=== PATIENT | male | born 1930 | race Caucasian/White ===

== ENCOUNTER 2016-10-26 13:15 | Emergency (ER) | payer MEDICARE ==
[2016-10-26 13:15] VITALS: BMI 19.8
--- NOTE | 2016-10-26 13:21 | EDPRACDOC ---
- General Information Chief Complaint: Altered Mental Status Stated Complaint: ALTERED MENTAL STATUS Time Seen by Provider: 10/26/16 13:18 Home Medications: Home Medications Aspirin [Aspirin EC] 81 mg PO DAILY 03/29/16 Metoprolol Tartrate [Lopressor] 25 mg PO BID #60 tablet 03/30/16 Chlordiazepoxide [Librium] 50 mg PO DAILY #20 capsule 10/26/16 Allergies/Adverse Reactions: Allergies Allergy/AdvReac Type Severity Reaction Status Date / Time No Known Allergies Allergy Verified 03/29/16 13:17 - History of Present Illness Onset: UNKNOWN Exact Onset of Symptoms: Unknown HPI: PT STATES THAT HIS DAUGHTER CALLED THE AMBULANCE AND HE DOES NOT KNOW WHY. PT DENIES ANY COMPLAINTS. PER EMS DAUGHTER WAS CONCERNED ABOUT AMS, DTR LIVES IN [place] AND WAS NOT AT THE HOME. PT'S FAMILY MEMBER THAT IS WITH HIM STATES THAT HE IS ACTING NORMALLY FOR HIM. STATES HE DID DRINK SOME ALCOHOL YESTERDAY BUT NONE TODAY. PT DENIES COMPLAINTS BUT INTERMITTENTLY APPEARS TO CRY. Symptoms began: Suddenly Duration: Since Onset Symptoms Currently: Reports: Still Present Altered Quality: Reports: Change in Behavior, Confusion Altered Severity: Reports: Moderate Recent Symptoms of: Reports: None Relevant History: Reports: CVA Prehospital: Reports: [employer], IV Associated signs and symptoms: Denies: Chest pain, Headache, Seizure, Slurred speech, Weakness ED Past Medical History - History Reviewed Yes Nurses notes reviewed and agree except as marked - Patient Medical History Neurological History: Reports: Dementia (mild) Cardiac History: Reports: Hypertension. Denies: Coronary Artery Disease, Atrial Fibrillation (in past- none), Hypercholesterolemia GI/ History: Reports: Gastroesophageal Reflux, Ulcer Musculoskeletal History: Reports: Osteoarthritis Psychological History: Reports: Substance Use Disorder (Patient drinks beer daily) Systemic History: Reports: Hypothyroidism Additional Past Medical History: GI BLEED Surgical History: Reports: Tonsillectomy/Adnoidectomy, Other (L eye - shrapnel from [facility]) - Family Medical History Reports: Hypertension, Cancer (maternal grandfather - colon CA), Stroke, Cardiac Disorders (mother - angina). Denies: Diabetes - Social Medical History Smoking Status: Never smoker Social History: Reports: Substance Use Disorder (Patient drinks beer daily) ETOH: Abuse Substance Abuse: None Lives With: Significant Other Lives In: Home EDM Review of Systems - Review of Systems Constitutional: negative: Chills, Fever, Fatigue, Weakness Eyes: negative: Blurred Vision, Double Vision Ears: negative: Drainage Throat: negative: Pain Nose: negative: Congestion, Discharge Respiratory: negative: Cough, Shortness of Breath, Wheezing Cardiovascular: negative: Chest Pain, Palpitations Gastrointestinal: negative: Diarrhea, Nausea, Pain, Vomiting Genitourinary: negative: Dysuria, Frequency Neurological: negative: Dizziness, Headache, Numbness, Weakness Musculoskeletal: No Symptoms Reported Integumentary: No Symptoms Reported - Physical Exam Constitutional: Alert (Awake), No apparent distress Oriented to: Person, Place Last recorded Vital Signs: Oxygen Pulse Oxygen Saturation O2 Device Oxygen Flow Rate Fraction of Inspired Oxygen ( FIO2) - HEENT Head: Normal ( normocephalic) Eye Exam: Normal (PERRL, EOMI, Sclera white) Oropharynx: Normal (Pharynx:Moist without exudate,Gums-no swelling) Tympanic Membrane: Normal ENT EAC: Normal TMJ: Normal Nose: No Symptoms Reported (septum midline) Neck: Normal (FROM, trachea at midline) - Respiratory/Cardiovascular Respiratory: Normal - CTA (BBS clear to auscultation without adventitious sounds ) Cardiovascular: Normal (RRR without murmur, gallop or rub) - GI Auscultation: Normal (NABS) Palpation: Normal (Soft,No rebound or guarding, non distended) Tenderness: Non tender Lord's Sign: Negative - Musculoskeletal Back: Normal (Non-Tender) Extremities: Normal (Normal tone, Pulses 2+ No cyanosis or edema, FROM) - Integumentary Skin: Normal, Warm, Dry Lymphatics: Normal (no adenopathy) - Neurologic Memory Impaired: Normal Motor Function: Normal (Normal tone, Pulses 2+ No cyanosis or edema, FROM) Cranial Nerve: Normal (CN II-X11 intact sensation, strength 5/5) Cerebellar: Normal Mood Description: Normal Perception: Normal Initial Evaluation Apperance: Unshaven, Underweight, Stated Age Attitude: Cooperative Mood: Euthymic Affect: Congruent w/ mood Insight: Good Judgement: Good Memory Description: Recent Impaired Depressive Symptoms: Reports: Crying episodes Anxiety Symptoms: Denies: Excessive Worries Manic/Hypomanic Symptoms: Denies: Expansive/irritable mood, Decreased Coping Skills, Racing Thoughts, Incr.pleasurable activity, Mood Swings, Pressured Speech Delusion Description: Reports: Not Present Hallucination Type: Reports: None - Differential Diagnosis Dehydration, Hypoglycemia, Hyponatremia, CVA, Mass Lesion, UTI - Re-evaluation Re-evaluation 1 Re-evaluation Time: 15:12 (PT REMOVED OWN IV, STATES WANTS TO GO HOME. DTR AT BEDSIDE, STATES LONG HX OF ETOH ABUSE, MULTIPLE ATTEMPTS AT GETTING HELP HAVE BEEN UNSUCCESSFUL. DTR WOULD LIKE TO TAKE PT HOME WITH HER BUT HE HAS REFUSED.) - Results 10/26/16 13:38 10/26/16 13:38 10/26/16 15:14 Laboratory Results - last 24 hr 10/26/16 10/26/16 10/26/16 13:38 13:38 13:38 WBC 4.7 RBC 3.55 L Hgb 10.8 L Hct 33.3 L MCV 94 MCH 30.4 MCHC 32.4 L RDW 17.0 H Plt Count 142 MPV 7.7 Neut % (Auto) 54.3 Lymph % (Auto) 25.2 [place] % (Auto) 18.4 H Eos % (Auto) 1.2 Baso % (Auto) 0.9 Absolute Neuts (auto) 2.54 Absolute Lymphs (auto) 1.18 PT 9.9 INR 1.0 APTT 22.3 Sodium 138 Potassium 4.4 Chloride 102 Carbon Dioxide 23 Anion Gap 17 H BUN 14 Creatinine 0.90 Estimated GFR (MDRD) > 60 Glucose 89 Calculated Osmolality 266 L Calcium 7.9 L Corrected Calcium 8.6 Total Bilirubin 0.6 AST 250 H ALT 143 H Alkaline Phosphatase 78 Troponin I 0.03 Total Protein 6.8 Albumin 3.3 L Urine Color Urine Clarity Urine pH Ur Specific [place] Urine Protein Urine Glucose (UA) Urine Ketones Urine Occult Blood Urine Nitrite Urine Bilirubin Urine Urobilinogen Ur Leukocyte Esterase Urine RBC Urine WBC Urine Mucus Urine Opiates Screen Ur Oxycodone Screen Urine Methadone Screen Ur Barbiturates Screen Ur Tricyclics Screen Ur Phencyclidine Scrn Ur Amphetamines Screen U Methamphetamines Scrn Urine MDMA Screen U Benzodiazepines Scrn Urine Cocaine Screen Ur THC Screen Plasma/Serum Ethyl Alc 0.34 H 10/26/16 10/26/16 14:15 14:15 WBC RBC Hgb Hct MCV MCH MCHC RDW Plt Count MPV Neut % (Auto) Lymph % (Auto) [place] % (Auto) Eos % (Auto) Baso % (Auto) Absolute Neuts (auto) Absolute Lymphs (auto) PT INR APTT Sodium Potassium Chloride Carbon Dioxide Anion Gap BUN Creatinine Estimated GFR (MDRD) Glucose Calculated Osmolality Calcium Corrected Calcium Total Bilirubin AST ALT Alkaline Phosphatase Troponin I Total Protein Albumin Urine Color Yellow Urine Clarity Clear Urine pH 5.0 Ur Specific [place] 1.005 Urine Protein Neg Urine Glucose (UA) Neg Urine Ketones 1+ H Urine Occult Blood 1+ H Urine Nitrite Neg Urine Bilirubin Neg Urine Urobilinogen <2.0 Ur Leukocyte Esterase Neg Urine RBC 0-2 Urine WBC 0-2 Urine Mucus Occ Urine Opiates Screen Neg Ur Oxycodone Screen Neg Urine Methadone Screen Neg Ur Barbiturates Screen Neg Ur Tricyclics Screen Neg Ur Phencyclidine Scrn Neg Ur Amphetamines Screen Neg U Methamphetamines Scrn Neg Urine MDMA Screen Neg U Benzodiazepines Scrn Neg Urine Cocaine Screen Neg Ur THC Screen Neg Plasma/Serum Ethyl Alc - EKG EKG #1 EKG Time: 13:29 -: Yes EKG interpreted by me Rate: bpm: 62 [place]: Normal Rhythm: NSR Block: None Hypertrophy: None ST: Nonsp Comparison: 03/29/16 (AFIB RESOLVED TODAY) - Diagnostic Imaging CT HEAD Image interpreted by: Radiologist CT HEAD WITHOUT CONTRAST TECHNIQUE: Contiguous axial images were obtained from the base of the skull through the vertex without intravenous contrast. COMPARISON: None. FINDINGS: There is no evidence of mass effect, midline shift, or extra-axial fluid collections. There is no evidence of a space-occupying lesion or intracranial hemorrhage. There is no evidence of a cortical-based area of acute infarction. There is generalized cerebral atrophy. There is periventricular white matter low attenuation likely secondary to microangiopathy. The ventricles and sulci are appropriate for the patient's age. The basal cisterns are patent. Visualized portions of the orbits are unremarkable. The visualized portions of the paranasal sinuses and mastoid air cells are unremarkable. Cerebrovascular atherosclerotic calcifications are noted. The osseous structures are unremarkable. IMPRESSION: 1. No acute intracranial pathology. 2. Chronic microvascular disease and cerebral atrophy. Decision Time to Discharge: 15:14 - Departure Disposition: Home Condition: Stable Final Diagnosis: Acute alcohol intoxication Qualifiers: Complication of substance-induced condition: uncomplicated Qualified Code(s): F10.120 - Alcohol abuse with intoxication, uncomplicated Instructions: Abuse of Alcohol (ED) Education/Counseling Given To: Patient, Family Member Education/Counseling Given Regarding: Diagnosis, Treatment, Prognosis, Follow Up Referrals: Bryan Beltran MD [Primary Care Provider] - One Week Prescriptions: New Chlordiazepoxide [Librium] 50 mg PO DAILY #20 capsule Continue Aspirin [Aspirin EC] 81 mg PO DAILY Metoprolol Tartrate [Lopressor] 25 mg PO BID #60 tablet Additional Instructions: PLEASE DO NOT TAKE LIBRIUM IF YOU ARE GOING TO DRINK, PLEASE FOLLOW UP WITH [facility] FOR ASSISTANCE WITH YOUR ALCOHOL ABUSE.
[2016-10-26] MEDS ORDERED: NS 1,000 ML IV ONE (13:23)
[2016-10-26 13:26] VITALS: TEMP 97.8
[2016-10-26 13:47] LABS: AUTOMATED BASOPHIL 0.9 % (0-2); AUTOMATED EOSINOPHIL 1.2 % (0-5); AUTOMATED LYMPH 25.2 % (17-44); AUTOMATED MONOCYTE 18.4 % (3-10); AUTOMATED NEUTROPHIL 54.3 % (45-76); MPV 7.7 fL (7.4-10.4)
[2016-10-26 13:59] LABS: PARTIAL THROMB. TIME 22.3 SEC (22-35)
[2016-10-26 14:08] LABS: BLOOD UREA NITROGEN 14 MG/DL (9-20); CALC CORRECTED 8.6 MG/DL (8.4-10.2); CALCIUM 7.9 MG/DL (8.4-10.2); CALCULATED OSMOLALITY 266 MOs/Kg (270-290); CHLORIDE 102 mEq/L (98-107); GLUCOSE 89 mg/dL (70-99); SODIUM LEVEL 138 mEq/L (137-146); TOTAL PROTEIN 6.8 G/DL (6.3-8.2)
[2016-10-26 14:15] LABS: ETOH-MGDL 342 mg/dL
--- NOTE | 2016-10-26 14:28 | DIRPT ---
CLINICAL DATA: New onset altered mental status. EXAM: CT HEAD WITHOUT CONTRAST TECHNIQUE: Contiguous axial images were obtained from the base of the skull through the vertex without intravenous contrast. COMPARISON: None. FINDINGS: There is no evidence of mass effect, midline shift, or extra-axial fluid collections. There is no evidence of a space-occupying lesion or intracranial hemorrhage. There is no evidence of a cortical-based area of acute infarction. There is generalized cerebral atrophy. There is periventricular white matter low attenuation likely secondary to microangiopathy. The ventricles and sulci are appropriate for the patient's age. The basal cisterns are patent. Visualized portions of the orbits are unremarkable. The visualized portions of the paranasal sinuses and mastoid air cells are unremarkable. Cerebrovascular atherosclerotic calcifications are noted. The osseous structures are unremarkable. IMPRESSION: 1. No acute intracranial pathology. 2. Chronic microvascular disease and cerebral atrophy. Electronically Signed By: Fanta Galdamez On: 10/26/2016 14:25
--- NOTE | 2016-10-26 14:45 | DIRPT ---
CLINICAL DATA: Altered mental status of unknown duration. Initial encounter. EXAM: PORTABLE CHEST 1 VIEW COMPARISON: Single view of the chest 03/29/2016. PA and lateral chest 08/10/2010. FINDINGS: Calcified pleural plaques are again seen. The lungs are clear. Heart size is enlarged. No pneumothorax or pleural effusion. The patient appears to have a hiatal hernia. No focal bony abnormality. IMPRESSION: Cardiomegaly without acute disease. No change in calcified pleural plaques compatible with prior asbestos exposure. Likely hiatal hernia. Electronically Signed By: Mendel Campoverde M.D. On: 10/26/2016 14:42
[2016-10-26 14:49] LABS: LEUKOCYTES/URINE NEG (NEGATIVE); NITRITE/URINE NEG (NEGATIVE); RBC/URINE 0-2 (0-2); URINE OCCULT BLOOD 1+ (NEG/TRACE); WBC/URINE 0-2 (0-2)
[2016-10-26] MEDS ORDERED: LORAZEPAM 2 MG/ML VIAL IV ONE (14:50)
[2016-10-26 14:53] LABS: ALL NEG? YES; MDMA* NEG (NEGATIVE); METHAMPHETAMINES NEG (NEGATIVE); OXYCODONE NEG (NEGATIVE)
[2016-10-26 15:44] VITALS: BP 154/73; PULSE 68
== END 2016-10-26 15:43 | disposition home or self-care (01) ==
LOC: ED 13:15
DX: F10.129 Alcohol abuse with intoxication, unspecified (principal)
CPT/HCPCS: 36415; 70450; 71010; 80053; 80307; 81001; 84484; 85025; 85610; 85730; 93005; 96360; 99283; A9270; G0480; J3490